=== PATIENT | male | born 1940 | race Caucasian/White ===

== ENCOUNTER → 2016-03-22 | Outpatient (CLI) | payer OTHER ==
[~2016-03-22] MED LIST: LOSA100T2 PO; NAPR1TAB9 PO
[2016-03-22 11:00] LABS: BASO % 0.2 %; BASO ABS # 0.02 K/uL (0-0.2); COMPLETE YES; EOS % 5.1 %; HEMATOCRIT 44.7 % (42-52); IG% 0.2 %; LYMPH % 25.8 %; LYMPH ABS # 2.27 K/uL (1.2-3.4); MEAN CELL VOLUME 94.1 fL (80-100); MEAN CORPUSCULAR HEMOGLOBIN 33.3 pg (25-34); MEAN CORPUSCULAR HGB CONC 35.3 g/dl (32-36); MEAN PLATELET VOLUME 11.3 fL (7.4-10.4); MONO % 7.8 %; NEUT % 60.9 %; PLATELET COUNT 179 K/uL (130-400); RED BLOOD COUNT 4.75 M/uL (4.7-6.1); WHITE BLOOD COUNT 8.79 K/uL (4.8-10.8)
[2016-03-22 11:09] LABS: BLOOD UREA NITROGEN 13 mg/dl (7-18); BUN/CREATININE RATIO 14.6 (10-20); CALCIUM 9.6 mg/dl (8.5-10.1); CARBON DIOXIDE 31 mmol/L (21-32); CHLORIDE 104 mmol/L (98-107); CREATININE 0.89 mg/dl (0.60-1.40); GLUCOSE 101 mg/dl (70-99); POTASSIUM 4.2 mmol/L (3.5-5.1); SODIUM 141 mmol/L (136-145)
== END | disposition home or self-care (01) ==
LOC: C.LAB 09:46
PROVIDERS: ATTEND Internal Medicine Geriatric Medicine
DX: I10 Essential (primary) hypertension (principal); M19.90 Unspecified osteoarthritis, unspecified site; R73.9 Hyperglycemia, unspecified; E78.5 Hyperlipidemia, unspecified; D69.6 Thrombocytopenia, unspecified; E83.52 Hypercalcemia

== ENCOUNTER → 2016-09-20 | Outpatient (CLI) | payer OTHER ==
[2016-09-20 12:21] LABS: HEMATOCRIT 43.1 % (42-52); MEAN CELL VOLUME 97.3 fL (80-100); MEAN CORPUSCULAR HGB CONC 33.9 g/dl (32-36); MEAN PLATELET VOLUME 11.2 fL (7.4-10.4); PLATELET COUNT 161 K/uL (130-400); RED BLOOD COUNT 4.43 M/uL (4.7-6.1); WHITE BLOOD COUNT 8.29 K/uL (4.8-10.8)
[2016-09-20 12:57] LABS: ALT/SGPT 37 U/L (12-78); AST/SGOT 23 U/L (15-37); BLOOD UREA NITROGEN 12 mg/dl (7-18); BUN/CREATININE RATIO 17.7 (10-20); CARBON DIOXIDE 30 mmol/L (21-32); CHLORIDE 107 mmol/L (98-107); CHOLESTEROL 129 mg/dl (0-200); CREATININE 0.69 mg/dl (0.60-1.40); GLUCOSE 92 mg/dl (70-99); POTASSIUM 4.2 mmol/L (3.5-5.1); SODIUM 141 mmol/L (136-145)
[2016-09-20 13:08] LABS: ALB/GLOB RATIO 1.1 (0.9-2); ALKALINE PHOSPHATASE 79 U/L (45-117); CHOLESTEROL/HDL RATIO 3.8; FERRITIN 452.4 ng/ml (8.0-388.0); HDL CHOLESTEROL 34 mg/dl; LDL CHOLESTEROL CALCULATED 63 mg/dl; TRIGLYCERIDES 162 mg/dl (0-150); VERY LOW DENSITY LIPOPROT CALC 32 mg/dl
== END | disposition home or self-care (01) ==
LOC: C.LAB 11:13
PROVIDERS: ATTEND Internal Medicine Geriatric Medicine
DX: R73.9 Hyperglycemia, unspecified (principal); D69.6 Thrombocytopenia, unspecified; E83.52 Hypercalcemia; I10 Essential (primary) hypertension; E78.5 Hyperlipidemia, unspecified; N20.0 Calculus of kidney; E55.9 Vitamin D deficiency, unspecified

== ENCOUNTER → 2017-03-08 | Outpatient (CLI) | payer OTHER ==
--- NOTE | 2017-03-08 09:58 | DIAGNOSTIC IMAGING REPORT ---
CHEST 2 VIEWS ROUTINE CLINICAL HISTORY: J20.9 Acute bronchitis COMPARISON STUDY: 11/01/2012 FINDINGS: The cardiac and mediastinal contours are normal. There is no evidence of focal pulmonary consolidation. There is no evidence of failure. No pleural effusions are visualized.[ IMPRESSION: No active disease in the chest. Electronically signed by: Jessee Mckeon M.D. 03/08/2017 9:56 AM Dictated Date/Time: 03/08/2017 9:56 AM
== END | disposition home or self-care (01) ==
LOC: C.RADBC 09:42
PROVIDERS: ATTEND Physician Assistant Medical
DX: J20.9 Acute bronchitis, unspecified (principal)

== ENCOUNTER → 2017-04-03 | Outpatient (CLI) | payer OTHER ==
[2017-04-03 18:14] LABS: BLOOD UREA NITROGEN 14 mg/dl (7-18); CALCIUM 9.2 mg/dl (8.5-10.1); CARBON DIOXIDE 29 mmol/L (21-32); CREATININE 0.84 mg/dl (0.60-1.40); GLUCOSE 93 mg/dl (70-99); POTASSIUM 4.2 mmol/L (3.5-5.1); SODIUM 139 mmol/L (136-145)
== END | disposition home or self-care (01) ==
LOC: C.LABBFT 11:39
PROVIDERS: ATTEND Internal Medicine Geriatric Medicine
DX: R39.15 Urgency of urination (principal); I10 Essential (primary) hypertension; R73.9 Hyperglycemia, unspecified; E83.52 Hypercalcemia

== ENCOUNTER 2020-12-02 07:50 | Inpatient (IN) ==
--- NOTE | 2020-12-02 08:05 | Emergency Department Note ---
Impression & Plan Small bowel obstruction, Esophageal dysphagia, Nausea & vomiting ED Provider Note Provider: Chu Rosado MD DATE OF SERVICE: 12/02/2020 CHIEF COMPLAINT: Vomiting, abdominal bloating HISTORY OF PRESENT ILLNESS: Patient is a 80-year-old gentleman past medical history including atrial fibrillation on Xarelto, thrombocytopenia, chronic back pain, GERD, diverticulosis, and an abdominal mass presenting here today reporting that he has been vomiting over the past 2 days. States he threw up o nce this morning has been on and off since Sunday. Reports 06/05 abdominal discomfort does not really describe it some which is the pain is some bloating. Denies any flatulence or bowel movements over the last 2 days. States he did note acute down a little bit of fluid. Was given a prescription for some Zofran yesterday but this has not helped with the vomiting although he thinks he threw up the pill. Patient denies any other sick contacts peer denies any chest pain or shortness of breath. Patient states he has been to take his home medicines last this past evening. Patient denies a history of similar. Does report a history of left inguinal hernia repair with mesh placement by Dr. Barrera. Patient is vaccinated for Covid. No lightheadedness or fainting reported. Has been try to keep down Pedialyte at home but no food for several days. No fevers reported. REVIEW OF SYSTEMS: A total of 10 review of systems was obtained and negative except as stated above in the HPI. PAST MEDICAL HISTORY: As noted above MEDICATIONS: Reviewed home medications SOCIAL HISTORY:former smoker PHYSICAL EXAM: GENERAL: alert and oriented in no acute distress on stretcher Head: normocephalic and atraumatic EYES: No injection, discharge or icterus. NECK: Trachea midline. LUNGS: Airway patent. No retractions. Breath sounds clear with good air entry bilaterally. HEART: Regular rate and rhythm. No chest wall tenderness ABDOMEN: Soft without guarding and no significant distention or masses appreciated. There is some mild deep tenderness in the left lower quadrant on palpation. Denies urinary or testicular tenderness. BACK: No bilateral flank tenderness. SKIN: Acyanotic, warm, dry, without rashes EXTREMITIES: Without swelling, tenderness or deformity NEUROLOGICAL: No focal deficits. No aphasia. No facial droop or slurred speech. Ambulatory. EK bpm sinus rhythm first-degree AV block. No PVC noted. No acute ST segment elevation noted with a right bundle branch block and left anterior fascicular block. QTc 441. In comparison to previous from December [id number], now appears with RBBB and LAFB with a slightly faster heart rate and first- degree AV block. CONTINUOUS CARDIAC MONITORING: was ordered and showed a heart rate of 60s to 70s bpm in first-degree AV block Patient's laboratory studies and imaging reviewed. Differential includes Appendicitis, testicular torsion, infections, diverticulitis, UTI, obstruction, mesenteric ischemia, aortic pathology, inflammatory bowel disease, renal colic, PUD, pancreatitis, biliary pathology, hernia, volvulus, constipation, as well as other pathologies. IMPRESSION/MEDICAL DECISION MAKING: Seen in conjunction with the resident physician. Covid vaccinated but will send Covid test to exclude. Question given his lack of bowel movement or flatulence if he may be suffering from an SBO. Patient from records reportedly has history of diverticulosis which is an alternative diagnosis as well as possible abdominal mass. Basic labs to be completed though the patient does not appear in extremitas were given some IV fluid hydration of Zofran here to help with symptoms. Denies severe pain more of a pressure and bloating sensation. Basic labs were completed. Given his history of A. fib and EKG was completed. Doubt this is pulmonary related he denies significant pulmonary symptoms and the patient is not appear to have symptoms concerning for Boerhaave syndrome. No vomiting of blood is reported & I doubt a GI bleed. Patient blood work shows no anemia but significant leukocytosis of 23 today. Labs otherwise without severe abnormality. Creatinine minimally elevated from previous and some hydration here. CT scan per radiology with evidence of SBO. Consistent with his symptoms. Again prior history of hernia surgery with Dr. Barrera. Given some additional Reglan to help with nausea. Discussed with the patient may need to proceed with NG tube his refractory nausea. Discussed with him bowel rest and discussed with the hospitalist further care here at the hospital. DIAGNOSIS: Small bowel obstruction, nausea DISPOSITION: Hospitalist will evaluate Patient was agreeable with this plan. Past Med/Surg History Medical History Abdominal mass Achalasia Atrial fibrillation on xarelto; follows with Dr. Piedra Chronic back pain Chronic venous insufficiency GERD (gastroesophageal reflux disease) Hyperlipidemia Hypertension Left bundle branch block On anticoagulant therapy XARELTO DAILY Osteoarthritis Sensorineural hearing loss (SNHL) of left ear with restricted hearing of right ear Sleep apnea CPAP SOB (shortness of breath) on exertion Surgical History History of arthroscopy RIGHT ELBOW History of arthroscopy LEFT KNEE History of cataract surgery History of colonoscopy X 2 History of esophagogastroduodenoscopy (EGD) History of herniorrhaphy (2009) Left inguinal hernia with mesh. Dr. Barrera History of total hip arthroplasty LEFT Family History Father Pancreatic cancer Grandfather (Maternal) Myocardial infarction Grandfather (Paternal) Myocardial infarction Mother Alzheimer disease Other Cancer Hypertension No family history of adverse response to anesthesia Denies family history of Ovarian cancer Prostate cancer Breast cancer Lung cancer Colorectal cancer Stroke Social History Smoking Status: Former smoker Tobacco Type: Cigarettes Age Started Using Tobacco: 18; Age Quit Using Tobacco: 68; packs per day: 1.5; Years Smoked: 50; Cigarettes Per Day: QUIT SEVERAL YEARS AGO; Number of Years Since Quit: 10; Second Hand Exposure: No; Hx Alcohol Use: Yes Alcohol type: beer Hx Substance Use: No Preferred Language: Bulgarian Communication Ability: Effective Visual Impairment: No Limitations Hearing Ability: Normal Gang Saw Operator Required: No Beliefs That Will Affect Care: None marital status: Current Living Situation: Spouse current occupational status: retired Feels Safe at Home: Yes Dental Care, Regularly: No Physical Activity Frequency: Does not Exercise Seatbelt Use: always Assistive Devices: Denture - Upper and Denture - Lower Allergies Allergies Allergy/AdvReac Type Severity Reaction Status Date / Time No Known Drug Allergies Allergy Verified 12/02/20 10:11 Home Meds Home Medications Medication Instructions Recorded Confirmed cholecalciferol (vitamin D3) 25 1,000 unit PO QAM 03/06/18 12/02/20 mcg (1,000 unit) capsule (Vitamin D3) ascorbic acid (vitamin C) 500 mg 500 mg PO QAM 06/06/19 12/02/20 tablet multivitamin (Multiple Vitamins) 1 tab PO QAM 06/06/19 12/02/20 flecainide 100 mg tablet 0 mg PO Q12H 12/02/20 12/02/20 ondansetron HCl 4 mg tablet 4 mg PO Q6H PRN 12/02/20 12/02/20 Previous Rx's Medication Instructions Recorded CPAP Machine #1 ea 03/10/19 CPAP Machine #1 ea 06/09/19 doxazosin 2 mg tablet 2 mg PO QPM #90 tab 07/27/20 losartan 100 mg tablet 100 mg PO QAM #90 tab 09/02/20 atorvastatin 10 mg tablet 10 mg PO HS #90 tab 09/21/20 pantoprazole 20 mg tablet,delayed 20 mg PO QAM #90 tab 09/21/20 release metoprolol tartrate 25 mg tablet 12.5 mg PO BID #30 tab 09/22/20 rivaroxaban 20 mg tablet (Xarelto) 20 mg PO HS #30 tab 09/22/20 hydrochlorothiazide 12.5 mg tablet 12.5 mg PO DAILY #90 tab 10/05/20 Results & Data (ED) Vital Signs Vital Signs - 24 hr 12/02/20 07:53 12/02/20 08:31 12/02/20 09:00 Temperature 35.9 C L Temperature Source Temporal Artery Scan Pulse Rate 93 H 63 Pulse Rate [Apical] 64 Pulse Rate from SpO2 Sensor 65 Respiratory Rate 20 18 15 Respiratory Effort / Characteristics Non-Labored Spontaneous Respiratory Depth Normal Blood Pressure 134/86 150/61 H Blood Pressure [Left Arm] 123/71 Blood Pressure Mean 102 90 Blood Pressure Mean [Left Arm] 88 Blood Pressure Position Sitting Pulse Oximetry 95 94 94 Oxygen Delivery Method Room Air Room Air Room Air Sepsis Recent Fever Within 48 Hours No Sepsis New/Unexplained Change in Mental Status N/A Sepsis Action Taken by Nursing No Action Required 12/02/20 09:30 12/02/20 10:00 12/02/20 10:30 Temperature Temperature Source Pulse Rate 58 L 62 63 Pulse Rate [Apical] Pulse Rate from SpO2 Sensor 62 62 62 Respiratory Rate 6 L 13 13 Respiratory Effort / Characteristics Respiratory Depth Blood Pressure 126/70 152/70 H 146/74 H Blood Pressure [Left Arm] Blood Pressure Mean 88 97 98 Blood Pressure Mean [Left Arm] Blood Pressure Position Pulse Oximetry 94 96 96 Oxygen Delivery Method Room Air Room Air Room Air Sepsis Recent Fever Within 48 Hours Sepsis New/Unexplained Change in Mental Status Sepsis Action Taken by Nursing 12/02/20 11:00 12/02/20 11:30 12/02/20 12:00 Temperature Temperature Source Pulse Rate 63 76 87 Pulse Rate [Apical] Pulse Rate from SpO2 Sensor 62 72 85 Respiratory Rate 19 19 19 Respiratory Effort / Characteristics Respiratory Depth Blood Pressure 149/75 H Blood Pressure [Left Arm] Blood Pressure Mean 99 Blood Pressure Mean [Left Arm] Blood Pressure Position Pulse Oximetry 94 95 94 Oxygen Delivery Method Room Air Room Air Room Air Sepsis Recent Fever Within 48 Hours Sepsis New/Unexplained Change in Mental Status Sepsis Action Taken by Nursing 12/02/20 12:30 Temperature Temperature Source Pulse Rate 71 Pulse Rate [Apical] Pulse Rate from SpO2 Sensor 73 Respiratory Rate 22 Respiratory Effort / Characteristics Respiratory Depth Blood Pressure Blood Pressure [Left Arm] Blood Pressure Mean Blood Pressure Mean [Left Arm] Blood Pressure Position Pulse Oximetry 98 Oxygen Delivery Method Room Air Sepsis Recent Fever Within 48 Hours Sepsis New/Unexplained Change in Mental Status Sepsis Action Taken by Nursing Laboratory Data Result diagrams: 12/02/20 08:24 12/02/20 08:24 Lab Results 12/02/20 12/02/20 12/02/20 Range/Units 08:24 08:24 08:31 WBC 23.21 H (4.8-10.8) K/uL RBC 4.63 L (4.7-6.1) M/uL Hgb 15.4 (14.0-18.0) g/dL Hct 44.8 (42-52) % MCV 96.8 (80-100) fL MCH 33.3 (25-34) pg MCHC 34.4 (32-36) g/dL RDW Std Deviation 47.1 H (36.4-46.3) fL RDW Coeff of Dustin 13.4 (11.5-14.5) % Plt Count 207 (130-400) K/uL MPV 10.7 H (7.4-10.4) fL Immature Gran % (Auto) 0.3 % Neut % (Auto) 89.1 % Lymph % (Auto) 4.7 % [place] % (Auto) 5.9 % Eos % (Auto) 0.0 % Baso % (Auto) 0.0 % Neut # (Auto) 20.68 H (1.4-6.5) K/uL Lymph # (Auto) 1.10 L (1.2-3.4) K/uL [place] # (Auto) 1.36 H (0.11-0.59) K/uL Eos # (Auto) 0.00 (0-0.5) K/uL Baso # (Auto) 0.01 (0-0.2) K/uL Immature Gran # (Auto) 0.06 H (0.00-0.02) K/uL Sodium 139 (136-145) mmol/L Potassium 3.5 (3.5-5.1) mmol/L Chloride 101 (98-107) mmol/L Carbon Dioxide 31 (21-32) mmol/L Anion Gap 8.0 (3-11) BUN 23 H (7-18) mg/dl Creatinine 1.36 (0.6-1.4) mg/dl Est Cr Clr Drug Dosing 54.7 ml/min Est GFR ( Amer) 57.4 ml/min Est GFR (Non-Af Amer) 49.5 ml/min BUN/Creatinine Ratio 16.7 (10-20) Glucose 157 H (70-99) mg/dl Calcium 10.6 H (8.5-10.1) mg/dl Total Bilirubin 0.7 (0.2-1) mg/dl AST 26 (15-37) U/L ALT 32 (12-78) U/L Alkaline Phosphatase 76 (45-117) U/L Troponin I < 0.015 (0-0.045) ng/ml Total Protein 9.0 H (6.4-8.2) gm/dl Albumin 4.2 (3.4-5.0) gm/dl Globulin 4.8 H (2.5-4.0) gm/dl Albumin/Globulin Ratio 0.9 (0.9-2) Lipase 126 (73-393) U/L COVID-19 Eval Order Covid19 [facility] SARS-CoV-2 (PCR) (Negative) SARS-CoV-2, RNA, NAAT (NEGATIVE) 12/02/20 12/02/20 12/02/20 Range/Units 08:31 09:01 09:01 WBC (4.8-10.8) K/uL RBC (4.7-6.1) M/uL Hgb (14.0-18.0) g/dL Hct (42-52) % MCV (80-100) fL MCH (25-34) pg MCHC (32-36) g/dL RDW Std Deviation (36.4-46.3) fL RDW Coeff of Dustin (11.5-14.5) % Plt Count (130-400) K/uL MPV (7.4-10.4) fL Immature Gran % (Auto) % Neut % (Auto) % Lymph % (Auto) % [place] % (Auto) % Eos % (Auto) % Baso % (Auto) % Neut # (Auto) (1.4-6.5) K/uL Lymph # (Auto) (1.2-3.4) K/uL [place] # (Auto) (0.11-0.59) K/uL Eos # (Auto) (0-0.5) K/uL Baso # (Auto) (0-0.2) K/uL Immature Gran # (Auto) (0.00-0.02) K/uL Sodium (136-145) mmol/L Potassium (3.5-5.1) mmol/L Chloride (98-107) mmol/L Carbon Dioxide (21-32) mmol/L Anion Gap (3-11) BUN (7-18) mg/dl Creatinine (0.6-1.4) mg/dl Est Cr Clr Drug Dosing ml/min Est GFR ( Amer) ml/min Est GFR (Non-Af Amer) ml/min BUN/Creatinine Ratio (10-20) Glucose (70-99) mg/dl Calcium (8.5-10.1) mg/dl Total Bilirubin (0.2-1) mg/dl AST (15-37) U/L ALT (12-78) U/L Alkaline Phosphatase (45-117) U/L Troponin I (0-0.045) ng/ml Total Protein (6.4-8.2) gm/dl Albumin (3.4-5.0) gm/dl Globulin (2.5-4.0) gm/dl Albumin/Globulin Ratio (0.9-2) Lipase (73-393) U/L COVID-19 Eval Order Covid19 at [facility] SARS-CoV-2 (PCR) NEGATIVE (Negative) SARS-CoV-2, RNA, NAAT NEGATIVE (NEGATIVE) Administered Medications Discontinued Medications Sodium Chloride (Nss 1000ml) 1,000 mls @ 999 mls/hr IV .Q1H1M STA Stop: 12/02/20 09:13 Last Infusion: 12/02/20 09:33 Dose: 0 mls/hr Documented by: [id number] Admin: 12/02/20 08:32 Dose: 999 mls/hr Documented by: [id number] Ioversol (Optiray 320 100ml) 93 ml IV ONCE ONE Stop: 12/02/20 09:13 Last Admin: 12/02/20 09:12 Dose: 93 ml Documented by: [id number] Ketorolac Tromethamine (Ketorolac Tromethamine 15 Mg/Ml Vial) 10 mg IV NOW STA Stop: 12/02/20 08:14 Last Admin: 12/02/20 08:33 Dose: 10 mg Documented by: [id number] Metoclopramide HCl (Metoclopramide Hcl Inj 5 Mg/Ml 2 Ml Vial) 5 mg IV ONE ONE Stop: 12/02/20 09:18 Last Admin: 12/02/20 09:21 Dose: 5 mg Documented by: [id number] Metoclopramide HCl (Metoclopramide Hcl Inj 5 Mg/Ml 2 Ml Vial) 5 mg IV ONE ONE Stop: 12/02/20 10:09 Last Admin: 12/02/20 10:20 Dose: 5 mg Documented by: [id number] Ondansetron HCl (Ondansetron Inj 2 Mg/Ml 2 Ml Vial) 4 mg IV NOW STA Stop: 12/02/20 08:14 Last Admin: 12/02/20 08:33 Dose: 4 mg Documented by: [id number] Imaging Data Radiologist's Impression: Abdomen/Pelvis CT 12/02/20 08:[address] WITH IV CONTRAST CT DOSE: 1408.43 mGy.cm HISTORY: Generalized abdominal pain. Assess for small bowel obstruction. TECHNIQUE: Multiaxial CT images of the abdomen and pelvis were performed follo wing the use of intravenous contrast. A dose lowering technique was utilized adhering to the principles of ALARA. COMPARISON STUDY: Abdomen and pelvis CT 06/15/2020. FINDINGS: The lung bases are clear. No pneumoperitoneum. No pneumatosis. There is a left total hip arthroplasty. No suspicious lytic or blastic osseous lesions. Mild circumferential thickening of the distal esophagus, unchanged. The liver, gallbladder, spleen, adrenal glands, and pancreas are unremarkable. There are few subcentimeter bilateral renal hypodense lesions. These are technically too small to characterize but likely represent cysts. There is a punctate stone within the left kidney. No ureteral stones. No hydronephrosis. The bladder is unremarkable. The prostate gland is mildly enlarged. The main portal vein is patent. No retroperitoneal lymphadenopathy. Dilated and fluid-filled loops of proximal small bowel to the level of the midabdomen where there is a focal t ransition point best seen on image 290. This is consistent with a small bowel obstruction. The stomach is also distended and fluid-filled. The loops of bowel distal to the transition point are decompressed. No pelvic free fluid. The conus also decompressed. No bowel wall thickening. Colonic diverticulosis. No evidence for acute diverticulitis. Normal appendix. IMPRESSION: 1. Distended and fluid-filled stomach and proximal small bowel with a focal transition point within the mid jejunum as described above. This consistent with a small bowel obstruction. 2. Left-sided nephrolithiasis. No hydronephrosis. 3. No change in the mild distal esophageal wall thickening. This may represent a mild esophagitis. 4. Normal appendix. 5. Colonic diverticulosis. ACT 112: Negative or not required by law. Electronically signed by: Abhijit Valerio M.D. 12/02/2020 9:32 AM Chest X-Ray 12/02/20 08:41 XR chest 1V portable HISTORY: Generalized abdominal pain. Possible small bowel obstruction. COMPARISON: Chest 06/22/2020. FINDINGS: No pneumothorax. No pleural effusions. The cardiac silhouette is borderline enlarged. No focal lung consolidations to suggest pneumonia. No evidence for pulmonary edema. IMPRESSION: No acute process. ACT 112: Negative or not required by law. Electronically signed by: Abhijit Valerio M.D. 12/02/2020 8:55 AM Discharge Plan Visit Data Chief Complaint: Vomiting Stated Complaint: VOMITING x2DAYS ED Provider: Chu Rosado ED Midlevel Provider: Carley Hardin Discharge Problem: Small bowel obstruction, Esophageal dysphagia, Nausea & vomiting Patient Disposition: Admitted As Inpatient Forms [facility] Pres[facility] Prescriptions: No Action doxazosin 2 mg tablet 2 mg PO QPM Qty: 90 RF: 3 losartan 100 mg tablet 100 mg PO QAM Qty: 90 RF: 3 pantoprazole 20 mg tablet,delayed release (DR/EC) 20 mg PO QAM Qty: 90 RF: 3 atorvastatin 10 mg tablet 10 mg PO HS Qty: 90 RF: 3 metoprolol tartrate 25 mg tablet 12.5 mg PO BID Qty: 30 RF: 11 Xarelto 20 mg tablet 20 mg PO HS Qty: 30 RF: 11 hydrochlorothiazide 12.5 mg tablet 12.5 mg PO DAILY Qty: 90 RF: 3 (DME) CPAP Machine Misc See Rx Instructions .ROUTE .MEDSUPPLY Qty: 1 RF: 0 (DME) CPAP Machine Misc See Rx Instructions .ROUTE .MEDSUPPLY Qty: 1 RF: 0 multivitamin [Multiple Vitamins] Tablet 1 tab PO QAM RF: 0 ascorbic acid (vitamin C) 500 mg tablet 500 mg PO QAM RF: 0 cholecalciferol (vitamin D3) [Vitamin D3] 1,000 unit Capsule 1,000 unit PO QAM RF: 0 ondansetron HCl 4 mg tablet 4 mg PO Q6H PRN (Reason: Nausea) RF: 0 flecainide 100 mg tablet 0 mg PO Q12H RF: 0 Referrals Referrals: Sejal Murray MD [Primary Care Provider] -
[2020-12-02] MEDS ORDERED: SODIUM CHLORIDE 0.9% 1000ML 1,000 ML IV STA (08:13)
[2020-12-02] MEDS ORDERED: ONDANSETRON INJ 2 MG/ML 2 ML VIAL IV STA (08:13)
[2020-12-02] MEDS ORDERED: KETOROLAC TROMETHAMINE 15 MG/ML VIAL IV STA (08:13)
[2020-12-02 08:36] LABS: Hematocrit (blood only) 44.8 % (42-52); Hemoglobin 15.4 g/dL (14.0-18.0); Mean Corpuscular Hemoglobin 33.3 pg (25-34); Mean Corpuscular Hgb Conc 34.4 g/dL (32-36); Mean Corpuscular Volume 96.8 fL (80-100); Mean Platelet Volume 10.7 fL (7.4-10.4); Platelet Count 207 K/uL (130-400); RDW Coefficient of Variation 13.4 % (11.5-14.5); RDW Standard Deviation 47.1 fL (36.4-46.3); Red Blood Count 4.63 M/uL (4.7-6.1); White Blood Count 23.21 K/uL (4.8-10.8)
[2020-12-02 08:53] LABS: Alanine Aminotransferase 32 U/L (12-78); Albumin Level 4.2 gm/dl (3.4-5.0); BUN Creatinine Ratio 16.7 (10-20); Blood Urea Nitrogen 23 mg/dl (7-18); Calcium 10.6 mg/dl (8.5-10.1); Carbon Dioxide 31 mmol/L (21-32); Chloride 101 mmol/L (98-107); Creatinine Clr Calc Pharmacy 54.7 ml/min; Est GFR (African American) 57.4 ml/min; Est GFR (Non-African American) 49.5 ml/min; Glucose 157 mg/dl (70-99); Lipase 126 U/L (73-393); Potassium 3.5 mmol/L (3.5-5.1); Sodium 139 mmol/L (136-145)
--- NOTE | 2020-12-02 08:56 | XRay Report ---
XR chest 1V portable HISTORY: Generalized abdominal pain. Possible small bowel obstruction. COMPARISON: Chest 06/22/2020. FINDINGS: No pneumothorax. No pleural effusions. The cardiac silhouette is borderline enlarged. No fo angela lung consolidations to suggest pneumonia. No evidence for pulmonary edema. IMPRESSION: No acute process. ACT 112: Negative or not required by law. Electronically signed by: Abhijit Valerio M.D. 12/02/2020 8:55 AM
[2020-12-02 08:58] LABS: Albumin Globulin Ratio 0.9 (0.9-2); Alkaline Phosphatase 76 U/L (45-117); Aspartate Aminotransferase 26 U/L (15-37); Bilirubin,Total 0.7 mg/dl (0.2-1); Globulin 4.8 gm/dl (2.5-4.0); Troponin I < 0.015 ng/ml (0-0.045)
[2020-12-02 08:59] LABS: Basophils # (auto) 0.01 K/uL (0-0.2); Immature Granulocytes # (auto) 0.06 K/uL (0.00-0.02); Immature Granulocytes % (auto) 0.3 %; Lymphocytes % (auto) 4.7 %; Monocytes # (auto) 1.36 K/uL (0.11-0.59); Monocytes % (auto) 5.9 %; Neutrophils # (auto) 20.68 K/uL (1.4-6.5); Neutrophils % (auto) 89.1 %
[2020-12-02] MEDS ORDERED: OPTIRAY 320 100ml IV ONE (09:12)
[2020-12-02] MEDS ORDERED: METOCLOPRAMIDE HCL INJ 5 MG/ML 2 ML VIAL IV ONE ×2 (09:17→10:08)
--- NOTE | 2020-12-02 09:33 | CT Scan Report ---
ABDOMEN AND PELVIS CT WITH IV CONTRAST CT DOSE: 1408.43 mGy.cm HISTORY: Generalized abdominal pain. Assess for small bowel obstruction. TECHNIQUE: Multiaxial CT images of the abdomen and pelvis were performed following the use of intrave nous contrast. A dose lowering technique was utilized adhering to the principles of ALARA. COMPARISON STUDY: Abdomen and pelvis CT 06/15/2020. FINDINGS: The lung bases are clear. No pneumoperitoneum. No pneumatosis. There is a left total hip ar throplasty. No suspicious lytic or blastic osseous lesions. Mild circumferential thickening of the di stal esophagus, unchanged. The liver, gallbladder, spleen, adrenal glands, and pancreas are unremarka ble. There are few subcentimeter bilateral renal hypodense lesions. These are technically too small t o characterize but likely represent cysts. There is a punctate stone within the left kidney. No urete ral stones. No hydronephrosis. The bladder is unremarkable. The prostate gland is mildly enlarged. Th e main portal vein is patent. No retroperitoneal lymphadenopathy. Dilated and fluid-filled loops of p roximal small bowel to the level of the midabdomen where there is a focal transition point best seen on image 290. This is consistent with a small bowel obstruction. The stomach is also distended and fl uid-filled. The loops of bowel distal to the transition point are decompressed. No pelvic free fluid. The conus also decompressed. No bowel wall thickening. Colonic diverticulosis. No evidence for acute diverticulitis. Normal appendix. IMPRESSION: 1. Distended and fluid-filled stomach and proximal small bowel with a focal transition point within t he mid jejunum as described above. This consistent with a small bowel obstruction. 2. Left-sided nephrolithiasis. No hydronephrosis. 3. No change in the mild distal esophageal wall thickening. This may represent a mild esophagitis. 4. Normal appendix. 5. Colonic diverticulosis. ACT 112: Negative or not required by law. Electronically signed by: Abhijit Valerio M.D. 12/02/2020 9:32 AM
--- NOTE | 2020-12-02 11:13 | History & Physical Report ---
Date of Service December 02, 2020 Assessment & Plan (1) Small bowel obstruction: Plan: Small bowel obstruction- Transition point admit jejunum Fluid-filled and distended stomach\ NPO NG tube to low intermittent suction Zofran 4 mg IV every 6 hours as needed Zosyn 4.5 g IV every 8 hours Famotidine 20 mg IV every 12 hours Acetaminophen 1000 mg IV every 8 hours as needed mild pain or fever Toradol 15 mg IV every 6 hours as needed for moderate pain Consult general surgery (2) Esophageal dysphagia: Plan: Esophageal dysphagia/GERD/esophagitis- Place on famotidine 20 mg IV every [address] on pantoprazole 40 mg IV daily (3) Obstructive sleep apnea: Plan: CPAP at bedtime (4) Atrial fibrillation: Plan: Atrial fibrillation/hypertension- Hold doxazosin, flecainide, HCTZ, losartan, metoprolol tartrate and Xarelto while n.p.o. Lopressor 5 mg IV every 4 hours as needed heart rate greater than 110 or systolic blood pressure greater than 60 (5) Hypertension: Plan: See above (6) GERD (gastroesophageal reflux disease): Plan: See above (7) Esophagitis: Plan: See above History of Present Illness Chief Complaint: The patient presents to the emergency department with complaint of 2 days of worsening abdominal pain, nausea, vomiting, distention and bloating Primary Care Provider: Sejal Murray MD The patient is a 80-year-old male with a past medical history including esophageal dysphagia, AILYN, atrial fibrillation, hypertension, CVI, GERD, dyslipidemia, generalized osteoarthritis,, SNHL left, obesity, bilateral lower extremity edema and achalasia. The patient presents to emergency department with 2 days of worsening abdominal pain, nausea, vomiting, abdominal distention and bloating. He was unable to take his morning medications due to the symptoms. CT scan of abdomen and pelvis in the ED: Distended and fluid-filled stomach and proximal small bowel with a focal transition point within the mid jejunum consistent with a small bowel obstruction. Left-sided nephrolithiasis. Mild esophageal distal wall thickening which may represent a mild esophagitis. Colonic diverticulosis. Abnormal laboratories: WBC 23.21, glucose 157, creatinine 1.36, calcium 10.6. From the ED patient received normal saline 1 L, Toradol 10 mg IV, Zofran 4 mg IV and metoclopramide 5 mg IV x2 Allergies Allergy/AdvReac Type Severity Reaction Status Date / Time No Known Drug Allergies Allergy Verified 12/02/20 10:11 Home Medications Medication Instructions Recorded Confirmed Type cholecalciferol (vitamin D3) 25 1,000 unit PO QAM 03/06/18 12/02/20 History mcg (1,000 unit) capsule (Vitamin D3) CPAP Machine #1 ea 03/10/19 09/06/20 Rx ascorbic acid (vitamin C) 500 mg 500 mg PO QAM 06/06/19 12/02/20 History tablet multivitamin (Multiple Vitamins) 1 tab PO QAM 06/06/19 12/02/20 History CPAP Machine #1 ea 06/09/19 09/06/20 Rx doxazosin 2 mg tablet 2 mg PO QPM #90 tab 07/27/20 12/02/20 Rx losartan 100 mg tablet 100 mg PO QAM #90 tab 09/02/20 12/02/20 Rx atorvastatin 10 mg tablet 10 mg PO HS #90 tab 09/21/20 12/02/20 Rx pantoprazole 20 mg tablet,delayed 20 mg PO QAM #90 tab 09/21/20 12/02/20 Rx release metoprolol tartrate 25 mg tablet 12.5 mg PO BID #30 tab 09/22/20 12/02/20 Rx rivaroxaban 20 mg tablet (Xarelto) 20 mg PO HS #30 tab 09/22/20 12/02/20 Rx hydrochlorothiazide 12.5 mg tablet 12.5 mg PO DAILY #90 tab 10/05/20 12/02/20 Rx flecainide 100 mg tablet 0 mg PO Q12H 12/02/20 12/02/20 History ondansetron HCl 4 mg tablet 4 mg PO Q6H PRN 12/02/20 12/02/20 History Past Med/Surg History Medical History Abdominal mass Achalasia Atrial fibrillation on xarelto; follows with Dr. Piedra Chronic back pain Chronic venous insufficiency GERD (gastroesophageal reflux disease) Hyperlipidemia Hypertension Left bundle branch block On anticoagulant therapy XARELTO DAILY Osteoarthritis Sensorineural hearing loss (SNHL) of left ear with restricted hearing of right ear Sleep apnea CPAP SOB (shortness of breath) on exertion Surgical History History of arthroscopy RIGHT ELBOW History of arthroscopy LEFT KNEE History of cataract surgery History of colonoscopy X 2 History of esophagogastroduodenoscopy (EGD) History of herniorrhaphy (2009) Left inguinal hernia with mesh. Dr. Barrera History of total hip arthroplasty LEFT Family History Father Pancreatic cancer Grandfather (Maternal) Myocardial infarction Grandfather (Paternal) Myocardial infarction Mother Alzheimer disease Other Cancer Hypertension No family history of adverse response to anesthesia Denies family history of Ovarian cancer Prostate cancer Breast cancer Lung cancer Colorectal cancer Stroke Social History Smoking Status: Former smoker Tobacco Type: Cigarettes Age Started Using Tobacco: 18; Age Quit Using Tobacco: 68; packs per day: 1.5; Years Smoked: 50; Cigarettes Per Day: QUIT SEVERAL YEARS AGO; Number of Years Since Quit: 10; Second Hand Exposure: No; Hx Alcohol Use: Yes Alcohol type: beer Hx Substance Use: No Preferred Language: Telugu Communication Ability: Effective Visual Impairment: No Limitations Hearing Ability: Normal Shredding Machine Tender Required: No Beliefs That Will Affect Care: None marital status: Current Living Situation: Spouse current occupational status: retired Feels Safe at Home: Yes Dental Care, Regularly: No Physical Activity Frequency: Does not Exercise Seatbelt Use: always Assistive Devices: Denture - Upper and Denture - Lower Review of Systems Review of Systems: The patient denies chest pain, palpitations, shortness of breath, dyspnea on exertion, cough, lower extremity swelling, sore throat, fevers, chills, sweats, blood in urine or stool, dysuria, urinary frequency or urgency, lightheadedness, dizziness, headache, memory loss, loss of consciousness, rash, abnormal bruising or bleeding, imbalance, focal or generalized weakness, numbness or tingling in arms or legs, generalized arthralgias or myalgias, back or neck pain, or night sweats. The review of systems is otherwise negative other than for that already noted above, and at least 10 systems have been reviewed. Physical Exam Physical Exam: The patient is awake, alert and oriented 3, well developed and well nourished, normocephalic and atraumatic, lying in bed and in no acute distress. HEENT--PERRL, EOMI, mucous membranes and oropharynx dry. Neck--supple. No JVD. No bruits. Thyroid normal, trachea midline, no adenopathy. Heart--normal S1 and S2. No murmurs, rubs or gallops. Lungs--clear bilaterally, no respiratory distress, no accessory muscle use. Abdomen--decreased bowel sounds and soft. Nontender. Nondistended. Obese Extremities--no cyanosis or clubbing. No edema. Dermatologic--normal skin turgor, normal color, no abnormal lymph nodes, no rash. Neurologic--cranial nerves II through XII grossly intact. Rheumatologic--normal range of motion. Psychiatric--normal affect. Results & Data Results & Data ([facility] [place]) Vital Signs (Past 12 Hours) Vital Signs Temp Pulse Pulse Resp BP BP Pulse Ox 12/02/20 10:30 63 13 146/74 H 96 12/02/20 10:00 62 13 152/70 H 96 12/02/20 09:30 58 L 6 L 126/70 94 12/02/20 09:00 63 15 150/61 H 94 12/02/20 08:31 64 18 123/71 94 12/02/20 07:53 96.6 F L 93 H 20 134/86 95 Laboratory Results Laboratory Results WBC 23.21 K/uL (4.8-10.8) H 12/02/20 08:24 RBC 4.63 M/uL (4.7-6.1) L 12/02/20 08:24 Hgb 15.4 g/dL (14.0-18.0) 12/02/20 08:24 Hct 44.8 % (42-52) 12/02/20 08:24 MCV 96.8 fL (80-100) 12/02/20 08:24 MCH 33.3 pg (25-34) 12/02/20 08:24 MCHC 34.4 g/dL (32-36) 12/02/20 08:24 RDW Std Deviation 47.1 fL (36.4-46.3) H 12/02/20 08:24 RDW Coeff of Dustin 13.4 % (11.5-14.5) 12/02/20 08:24 Plt Count 207 K/uL (130-400) 12/02/20 08:24 MPV 10.7 fL (7.4-10.4) H 12/02/20 08:24 Immature Gran % (Auto) 0.3 % 12/02/20 08:24 Neut % (Auto) 89.1 % 12/02/20 08:24 Lymph % (Auto) 4.7 % 12/02/20 08:24 [place] % (Auto) 5.9 % 12/02/20 08:24 Eos % (Auto) 0.0 % 12/02/20 08:24 Baso % (Auto) 0.0 % 12/02/20 08:24 Neut # (Auto) 20.68 K/uL (1.4-6.5) H 12/02/20 08:24 Lymph # (Auto) 1.10 K/uL (1.2-3.4) L 12/02/20 08:24 [place] # (Auto) 1.36 K/uL (0.11-0.59) H 12/02/20 08:24 Eos # (Auto) 0.00 K/uL (0-0.5) 12/02/20 08:24 Baso # (Auto) 0.01 K/uL (0-0.2) 12/02/20 08:24 Immature Gran # (Auto) 0.06 K/uL (0.00-0.02) H 12/02/20 08:24 Sodium 139 mmol/L (136-145) 12/02/20 08:24 Potassium 3.5 mmol/L (3.5-5.1) 12/02/20 08:24 Chloride 101 mmol/L (98-107) 12/02/20 08:24 Carbon Dioxide 31 mmol/L (21-32) 12/02/20 08:24 Anion Gap 8.0 (3-11) 12/02/20 08:24 BUN 23 mg/dl (7-18) H 12/02/20 08:24 Creatinine 1.36 mg/dl (0.6-1.4) 12/02/20 08:24 Est Cr Clr Drug Dosing 54.7 ml/min 12/02/20 08:24 Est GFR ( Amer) 57.4 ml/min 12/02/20 08:24 Est GFR (Non-Af Amer) 49.5 ml/min 12/02/20 08:24 BUN/Creatinine Ratio 16.7 (10-20) 12/02/20 08:24 Glucose 157 mg/dl (70-99) H 12/02/20 08:24 Calcium 10.6 mg/dl (8.5-10.1) H 12/02/20 08:24 Total Bilirubin 0.7 mg/dl (0.2-1) 12/02/20 08:24 AST 26 U/L (15-37) 12/02/20 08:24 ALT 32 U/L (12-78) 12/02/20 08:24 Alkaline Phosphatase 76 U/L (45-117) 12/02/20 08:24 Troponin I < 0.015 ng/ml (0-0.045) 12/02/20 08:24 Total Protein 9.0 gm/dl (6.4-8.2) H 12/02/20 08:24 Albumin 4.2 gm/dl (3.4-5.0) 12/02/20 08:24 Globulin 4.8 gm/dl (2.5-4.0) H 12/02/20 08:24 Albumin/Globulin Ratio 0.9 (0.9-2) 12/02/20 08:24 Lipase 126 U/L (73-393) 12/02/20 08:24 COVID-19 Eval Order Covid19 at [facility] 12/02/20 09:01 SARS-CoV-2 (PCR) NEGATIVE (Negative) 12/02/20 09:01 SARS-CoV-2, RNA, NAAT NEGATIVE (NEGATIVE) 12/02/20 08:31 Impressions Abdomen/Pelvis CT 12/02/20 08:[address] WITH IV CONTRAST CT DOSE: 1408.43 mGy.cm HISTORY: Generalized abdominal pain. Assess for small bowel obstruction. TECHNIQUE: Multiaxial CT images of the abdomen and pelvis were performed following the use of intravenous contrast. A dose lowering technique was utilized adhering to the principles of ALARA. COMPARISON STUDY: Abdomen and pelvis CT 06/15/2020. FINDINGS: The lung bases are clear. No pneumoperitoneum. No pneumatosis. There is a left total hip arthroplasty. No suspicious lytic or blastic osseous lesions. Mild circumferential thickening of the distal esophagus, unchanged. The liver, gallbladder, spleen, adrenal glands, and pancreas are unremarkable. There are few subcentimeter bilateral renal hypodense lesions. These are technically too small to characterize but likely represent cysts. There is a punctate stone within the left kidney. No ureteral stones. No hydronephrosis. The bladder is unremarkable. The prostate gland is mildly enlarged. The main portal vein is patent. No retroperitoneal lymphadenopathy. Dilated and fluid-filled loops of proximal small bowel to the level of the midabdomen where there is a focal transition point best seen on image 290. This is consistent with a small bowel obstruction. The stomach is also distended and fluid-filled. The loops of bowel distal to the transition point are decompressed. No pelvic free fluid. The conus also decompressed. No bowel wall thickening. Colonic diverticulosis. No evidence for acute diverticulitis. Normal appendix. IMPRESSION: 1. Distended and fluid-filled stomach and proximal small bowel with a focal transition point within the mid jejunum as described above. This consistent with a small bowel obstruction. 2. Left-sided nephrolithiasis. No hydronephrosis. 3. No change in the mild distal esophageal wall thickening. This may represent a mild esophagitis. 4. Normal appendix. 5. Colonic diverticulosis. ACT 112: Negative or not required by law. Electronically signed by: Abhijit Valerio M.D. 12/02/2020 9:32 AM Chest X-Ray 12/02/20 08:41 XR chest 1V portable HISTORY: Generalized abdominal pain. Possible small bowel obstruction. COMPARISON: Chest 06/22/2020. FINDINGS: No pneumothorax. No pleural effusions. The cardiac silhouette is borderline enlarged. No focal lung consolidations to suggest pneumonia. No evidence for pulmonary edema. IMPRESSION: No acute process. ACT 112: Negative or not required by law. Electronically signed by: Abhijit Valerio M.D. 12/02/2020 8:55 AM Code Status & VTE Plan Code Status Full code VTE Prophylaxis Plan VTE Prophylaxis will be ordered: Yes PG Care Time/CCT Total # of Minutes Spent Total Time Spent with Patient: Total time spent is greater than 50% in coordination of care (as documented) at patient's floor/unit and/or counseling patient: Coding Level of Care Code 39486 Initial Inpt Care Lvl 3 Diagnoses Small bowel obstruction K56.609 Esophageal dysphagia R13.10 Obstructive sleep apnea G47.33 Atrial fibrillation I48.91 Hypertension I10 GERD (gastroesophageal reflux disease) K21.9 Esophagitis K20.90
[2020-12-02] MEDS ORDERED: ACETAMINOPHEN 1,000 MG/100 ML VIAL IV PRN (11:23)
[2020-12-02] MEDS ORDERED: KETOROLAC TROMETHAMINE 15 MG/ML VIAL IV PRN (11:24)
[2020-12-02] MEDS ORDERED: FAMOTIDINE 20MG/5ML IV PUSH IV ONE (13:36)
[2020-12-02] MEDS: FAMOTIDINE 20 MG in SYRINGE 3 ML IV SCH ×2 (13:38→21:56)
[2020-12-02] MEDS ORDERED: METOPROLOL TARTRATE 1 MG/ML VIAL IV PRN (16:17)
[2020-12-02] MEDS ORDERED: ONDANSETRON INJ 2 MG/ML 2 ML VIAL IV PRN (16:57)
[2020-12-02] MEDS ORDERED: PIPERACILL/TAZOBAC CONSULT ACTIVE PRN (16:57)
[2020-12-02] MEDS: LACTATED RINGER'S 1,000 ML IV SCH (17:03)
[2020-12-02] MEDS ORDERED: PIPERACILLIN/TAZOBACTAM 4.5 GM in DEXTROSE 5% 100 ML IV ONE (17:30)
[2020-12-02] MEDS ORDERED: PNEUMOCOCCAL POLYSACCHARIDES 25 MCG/0.5 ML VIAL/SYR IM ONE (19:18)
[2020-12-02] MEDS ORDERED: INFLUENZA VACCINE HIGH DOSE PF 65+ 0.7 ML SYR IM ONE (19:18)
--- NOTE | 2020-12-02 20:25 | Surgery Consultation ---
Date of Consultation December 02, 2020 Assessment & Plan (1) Small bowel obstruction: Patient has been admitted by the hospital service we recommend proceeding as follows: Provide analgesics Provide antiemetics Continue n.p.o. status and NG tube to low continuous suction. Consideration will be given to removing NG tube based on symptomatic relief and return of bowel function. Once patient's NG tube ably removed diet can be slowly reintroduced beginning with sips of clear liquids but again this will be dependent on return of bowel function Provide hydration with IV fluids while patient is n.p.o. Patient is noted to have a leukocytosis on admission labs. The cause of this is unclear. He has been placed on Zosyn which we will continue for the present time. We recommend repeating labs in the morning. We will continue following with patient is hospitalized. History of Present Illness Reason for Consultation: Small bowel obstruction Attending Physician: Ramon Leblanc MD History of Present Illness This is 80-year-old male who presented to [facility] emergency department earlier today secondary to abdominal pain. Patient says he has been having abdominal pain for approximately 1 to 2 days. He notes that the pain became much worse so he presented to the emergency department. He does not note any palliative or provocative factors prior to arrival to the emergency department. He said the pain does not radiate. He notes he has not had a bowel movement approximately 4 days. With his abdominal pain he has not had any nausea or vomiting. He denies any fevers, shakes, chills. Patient says his only abdominal surgery was a left inguinal herniorrhaphy done "many years ago" by Dr. Barrera. Since admission patient has had labs and imaging which I independently reviewed. A chest x-ray showed no evidence of pneumonia. A CT scan of the abdomen showed the patient had a distended and fluid-filled stomach along with a distended proximal small bowel with a transition point near the mid jejunum. This was felt to represent a small bowel obstruction. Labs include a CBC her white blood cell count was 23.2. His hemoglobin, hematocrit, and platelet count were within normal range. Chemistry profile showed sodium, potassium, and creatinine were within normal range. He had a slight elevation of his BUN at 23. There were no significant elevation of his LFTs or lipase. A Covid test was performed and was noted to be negative. In the emergency department patient did have an NG tube placed. Since the NG tube was placed proximally 600 cc of drainage was obtained. Patient did note great deal of symptomatic relief concerning his abdominal complaints since this modality was utilized. In addition, the patient notes that since admission he has begun to pass flatus. It is noteworthy mention that this patient does have history of atrial fibrillation for which he takes Xarelto. Takes his medication in the evening but notes that he did not take last evening's dose and believes his most recent dose was 2 evenings ago. At the time of my interview he is resting comfortably in bed and he was in no distress. Allergies Allergy/AdvReac Type Severity Reaction Status Date / Time No Known Drug Allergies Allergy Verified 12/02/20 10:11 Home Medications Medication Instructions Recorded Confirmed Type cholecalciferol (vitamin D3) 25 1,000 unit PO QAM 03/06/18 12/02/20 History mcg (1,000 unit) capsule (Vitamin D3) CPAP Machine #1 ea 03/10/19 09/06/20 Rx ascorbic acid (vitamin C) 500 mg 500 mg PO QAM 06/06/19 12/02/20 History tablet multivitamin (Multiple Vitamins) 1 tab PO QAM 06/06/19 12/02/20 History CPAP Machine #1 ea 06/09/19 09/06/20 Rx doxazosin 2 mg tablet 2 mg PO QPM #90 tab 07/27/20 12/02/20 Rx losartan 100 mg tablet 100 mg PO QAM #90 tab 09/02/20 12/02/20 Rx atorvastatin 10 mg tablet 10 mg PO HS #90 tab 09/21/20 12/02/20 Rx pantoprazole 20 mg tablet,delayed 20 mg PO QAM #90 tab 09/21/20 12/02/20 Rx release metoprolol tartrate 25 mg tablet 12.5 mg PO BID #30 tab 09/22/20 12/02/20 Rx rivaroxaban 20 mg tablet (Xarelto) 20 mg PO HS #30 tab 09/22/20 12/02/20 Rx hydrochlorothiazide 12.5 mg tablet 12.5 mg PO DAILY #90 tab 10/05/20 12/02/20 Rx flecainide 100 mg tablet 0 mg PO Q12H 12/02/20 12/02/20 History ondansetron HCl 4 mg tablet 4 mg PO Q6H PRN 12/02/20 12/02/20 History Patient History Medical History Abdominal mass Achalasia Atrial fibrillation on xarelto; follows with Dr. Piedra Chronic back pain Chronic venous insufficiency GERD (gastroesophageal reflux disease) Hyperlipidemia Hypertension Left bundle branch block On anticoagulant therapy XARELTO DAILY Osteoarthritis Sensorineural hearing loss (SNHL) of left ear with restricted hearing of right ear Sleep apnea CPAP SOB (shortness of breath) on exertion Surgical History History of arthroscopy RIGHT ELBOW History of arthroscopy LEFT KNEE History of cataract surgery History of colonoscopy X 2 History of esophagogastroduodenoscopy (EGD) History of herniorrhaphy (2009) Left inguinal hernia with mesh. Dr. Barrera History of total hip arthroplasty LEFT Family History Father Pancreatic cancer Grandfather (Maternal) Myocardial infarction Grandfather (Paternal) Myocardial infarction Mother Alzheimer disease Other Cancer Hypertension No family history of adverse response to anesthesia Denies family history of Ovarian cancer Prostate cancer Breast cancer Lung cancer Colorectal cancer Stroke Social History Smoking Status: Former smoker Tobacco Type: Cigarettes Age Started Using Tobacco: 18; Age Quit Using Tobacco: 68; packs per day: 1.5; Years Smoked: 50; Cigarettes Per Day: QUIT SEVERAL YEARS AGO; Number of Years Since Quit: 10; Second Hand Exposure: No; Hx Alcohol Use: No Hx Substance Use: No Preferred Language: Jamaican Communication Ability: Effective Visual Impairment: No Limitations Hearing Ability: Normal Tool Radial Drill Press Set Up Operator Required: No Beliefs That Will Affect Care: None marital status: Current Living Situation: Spouse Current Living Situation Comment: home with spouse. retired. current occupational status: retired Feels Safe at Home: Yes Dental Care, Regularly: No Physical Activity Frequency: Does not Exercise Seatbelt Use: always Assistive Devices: None Review of Systems Constitutional: no fever and no chills Eyes: no diplopia Ear, Nose, Mouth, Throat: no ear pain Respiratory: no cough and no dyspnea Cardiovascular: no chest pain Gastrointestinal: + abdominal pain; no nausea and no vomiting Genitourinary: no dysuria Musculoskeletal: no back pain Integumentary: no rash Neurologic: no localized weakness Physical Exam Constitutional: well developed and well nourished; no acute distress Eyes: no conjunctival abnormality ENMT: Ears: no hearing impairment Mouth: no oropharynx abnormality NG tube in place Neck: trachea midline Respiratory: normal respiratory effort; no respiratory distress and no labored breathing Cardiovascular: Rate/Rhythm: regular rate and regular rhythm Gastrointestinal (Abdomen): Abdomen is rotund but soft. Bowel sounds are present but hypoactive. There is no pain with palpation. There is no rebound tenderness or guarding. Not appreciate any hernias. Musculoskeletal: No calf tenderness Skin: no rashes Neurologic: moves all extremities Psychiatric: A+Ox3, euthymic affect Results & Data ([facility]) Vital Signs (Past 12 Hours) Vital Signs Temp Pulse Pulse Resp BP BP Pulse Ox 12/02/20 19:08 36.7 C 72 19 153/98 H 97 12/02/20 16:57 36.7 C 72 19 153/98 H 97 12/02/20 16:35 36.7 C 72 19 153/98 H 97 12/02/20 16:00 78 17 138/84 98 12/02/20 15:30 77 18 134/80 96 12/02/20 15:00 70 14 105/75 99 12/02/20 14:30 61 20 128/66 98 12/02/20 14:00 74 15 115/74 98 12/02/20 13:30 70 12 137/84 98 12/02/20 13:00 57 L 22 145/86 H 98 12/02/20 12:30 71 22 98 12/02/20 12:00 87 19 149/75 H 94 12/02/20 11:30 76 19 95 12/02/20 11:00 63 19 94 12/02/20 10:30 63 13 146/74 H 96 12/02/20 10:00 62 13 152/70 H 96 12/02/20 09:30 58 L 6 L 126/70 94 12/02/20 09:00 63 15 150/61 H 94 12/02/20 08:31 64 18 123/71 94 PG Care Time/CCT Total # of Minutes Spent Total Time Spent with Patient: Total time spent is greater than 50% in coordination of care (as documented) at patient's floor/unit and/or counseling patient: Coding Level of Care Code 18690 Inpt Consult Level 5 Diagnoses Small bowel obstruction K56.609
[2020-12-02] MEDS: PIPERACILLIN/TAZOBACTAM 4.5 GM in DEXTROSE 5% 100 ML IV SCH (21:56)
[2020-12-02 22:24] LABS: Appearance Urine Clear (Clear); Bacteria Urine Automated Negative (Negative); Bilirubin Urine Negative (Negative); Blood Urine Negative (Negative); Color Urine Dark Yellow; Glucose Urine UA Negative (Negative); Ketones Urine Trace (Negative); Leukocyte Esterase Urine Negative (Negative); Nitrite Urine Negative (Negative); Protein Urine 1+ (Negative); Specific Gravity Urine > 1.045 (1.000-1.030); Urobilinogen Urine Negative (Negative); pH Urine 5.5 (4.5-7.5)
[2020-12-03] MEDS: LACTATED RINGER'S 1,000 ML IV SCH (02:48)
[2020-12-03] MEDS: PIPERACILLIN/TAZOBACTAM 4.5 GM in DEXTROSE 5% 100 ML IV SCH ×3 (05:57→21:45)
[2020-12-03 06:55] LABS: Basophils # (auto) 0.02 K/uL (0-0.2); Basophils % (auto) 0.1 %; Eosinophils # (auto) 0.05 K/uL (0-0.5); Eosinophils % (auto) 0.3 %; Hematocrit (blood only) 37.5 % (42-52); Hemoglobin 12.6 g/dL (14.0-18.0); Immature Granulocytes # (auto) 0.03 K/uL (0.00-0.02); Immature Granulocytes % (auto) 0.2 %; Lymphocytes # (auto) 1.77 K/uL (1.2-3.4); Lymphocytes % (auto) 12.2 %; Mean Corpuscular Hemoglobin 32.7 pg (25-34); Mean Corpuscular Hgb Conc 33.6 g/dL (32-36); Mean Corpuscular Volume 97.4 fL (80-100); Mean Platelet Volume 10.2 fL (7.4-10.4); Monocytes # (auto) 1.46 K/uL (0.11-0.59); Neutrophils % (auto) 77.2 %; Platelet Count 172 K/uL (130-400); RDW Coefficient of Variation 13.7 % (11.5-14.5); RDW Standard Deviation 48.7 fL (36.4-46.3); Red Blood Count 3.85 M/uL (4.7-6.1); White Blood Count 14.53 K/uL (4.8-10.8)
[2020-12-03 07:22] LABS: Albumin Level 3.2 gm/dl (3.4-5.0); BUN Creatinine Ratio 20.6 (10-20); Calcium 9.1 mg/dl (8.5-10.1); Creatinine Clr Calc Pharmacy 67.2 ml/min; Est GFR (African American) 74.1 ml/min; Magnesium 2.4 mg/dl (1.8-2.4); Potassium 3.3 mmol/L (3.5-5.1)
[2020-12-03 07:28] LABS: Albumin Globulin Ratio 0.9 (0.9-2); Bilirubin,Total 0.9 mg/dl (0.2-1); Globulin 3.6 gm/dl (2.5-4.0); Phosphorus 3.1 mg/dl (2.5-4.9); Total Protein 6.8 gm/dl (6.4-8.2)
--- NOTE | 2020-12-03 08:14 | Surgery Progress Note ---
Date of Service December 03, 2020 Assessment & Plan (1) Small bowel obstruction: Plan: clinically better keep ngt at least another 24 hours....repeat KUB if continues to improve can consider clamping trial tomorrow [facility] for weekend. Admission and Anticipated Discharge Date Admission Date: December 02, 2020 Subjective pt feeling much better already. no nausea. no pain. Physical Exam Constitutional: WD/WN, vitals as above no acute distress and not ill appearing Eyes: PERRL, conjunctivae normal, anicteric sclerae EOM intact bilaterally ENMT: external ear and nose normal, oropharynx normal Ears: no hearing impairment Neck: trachea midline, no thyromegaly Respiratory: normal respiratory effort; no respiratory distress and does not use accessory muscles Cardiovascular: Rate/Rhythm: regular rate and regular rhythm Gastrointestinal (Abdomen): soft. non-distended. nt. Skin: no rashes, warm and dry Psychiatric: Orientation: alert, oriented x 3 and cooperative Results & Data ([facility]) Vital Signs (Past 12 Hours) Vital Signs Temp Pulse Pulse Resp BP Pulse Ox 12/03/20 06:35 36.8 C 48 L 18 112/65 97 12/03/20 04:00 36.7 C 51 L 18 144/77 H 96 12/02/20 23:31 49 L 12/02/20 23:00 36.6 C 49 L 18 134/74 98 PG Care Time/CCT Total # of Minutes Spent Total Time Spent with Patient: Total time spent is greater than 50% in coordination of care (as documented) at patient's floor/unit and/or counseling patient: Coding Level of Care Code 49840 Subseq Hosp Care Lvl 3 Diagnoses Small bowel obstruction K56.609
[2020-12-03] MEDS: NSS + 20MEQ KCL 20 MEQ/1,000 ML BAG IV SCH ×2 (09:05→17:21)
[2020-12-03] MEDS: FAMOTIDINE 20 MG in SYRINGE 3 ML IV SCH ×2 (09:40→21:45)
--- NOTE | 2020-12-03 10:25 | XRay Report ---
KUB HISTORY: Follow up study in a patient with reported small bowel obstruction SBO COMPARISON: CT abdomen and pelvis 12/02/2020 FINDINGS: Air is noted within loops of both large and small bowel. No definite pathologically dilated loops of small bowel are identified. No renal calculi. No ureteral calculi. No pneumoperitoneum or pneumatosis. Degenerative changes of the spine, pelvis and right hip. Left hip total joint arthroplas ty. No fracture. IMPRESSION: There is decreased small bowel distention from yesterday's study. ACT 112: Negative or not required by law. The above report was generated using voice recognition software. It may contain grammatical, syntax o r spelling errors. Electronically signed by: Ortiz Hill M.D. 12/03/2020 10:24 AM
[2020-12-03] MEDS: PANTOprazole 40 MG in SYRINGE 0 ML IV SCH (12:29)
--- NOTE | 2020-12-03 17:07 | Electrocardiogram Report ---
Test Reason : Blood Pressure : / mmHG Vent. Rate : 077 BPM Atrial Rate : 077 BPM P-R Int : 238 ms QRS Dur : 138 ms QT Int : 390 ms P-R-T Axes : 039 -67 047 degrees QTc Int : 441 ms Sinus rhythm with 1st degree A-V block with Fusion complexes Right bundle branch block Left anterior fascicular block Bifascicular block Voltage criteria for left ventricular hypertrophy Abnormal ECG When compared with ECG of 03-DEC-2009 09:36, Fusion complexes are now Present [place] interval has increased (RBBB and left anterior fascicular block) is now Present Confirmed by Tim Franklin ([id number]) on 12/03/2020 5:07:38 PM Referred By: REFERRED SELF Confirmed By:Anthony Franklin
--- NOTE | 2020-12-03 20:23 | Hospitalist Progress Note ---
Date of Service December 03, 2020 Assessment & Plan (1) Small bowel obstruction: Plan: Small bowel obstruction- Transition point admit jejunum Fluid-filled and distended stomach\ NPO NG tube to low intermittent suction Zofran 4 mg IV every 6 hours as needed Zosyn 4.5 g IV every 8 hours Famotidine 20 mg IV every 12 hours Acetaminophen 1000 mg IV every 8 hours as needed mild pain or fever Toradol 15 mg IV every 6 hours as needed for moderate pain Consult general surgery: appreciate input Patient is improving. Will likely clamp NG tube tomorrow if continues to improve and feel well. (2) Esophageal dysphagia: Plan: Esophageal dysphagia/GERD/esophagitis- Place on famotidine 20 mg IV every [address] on pantoprazole 40 mg IV daily (3) Obstructive sleep apnea: Plan: CPAP at bedtime (4) Atrial fibrillation: Plan: Atrial fibrillation/hypertension- Hold doxazosin, flecainide, HCTZ, losartan, metoprolol tartrate and Xarelto while n.p.o. Lopressor 5 mg IV every 4 hours as needed heart rate greater than 110 or systolic blood pressure greater than 60 (5) Hypertension: Plan: See above (6) GERD (gastroesophageal reflux disease): Plan: See above (7) Esophagitis: Plan: See above Admission and Anticipated Discharge Date Admission Date: December 02, 2020 Subjective Patient states that he is feeling better. He is passing some gas. Patient denies any pain. Review of Systems Review of Systems: All systems reviewed & are unremarkable except as noted in HPI & below Physical Exam Physical Exam: The patient is awake, alert and oriented 3, well developed and well nourished, normocephalic and atraumatic, lying in bed and in no acute distress. HEENT--PERRL, EOMI, mucous membranes and oropharynx dry. Neck--supple. No JVD. No bruits. Thyroid normal, trachea midline, no a denopathy. Heart--normal S1 and S2. No murmurs, rubs or gallops. Lungs--clear bilaterally, no respiratory distress, no accessory muscle use. Abdomen--decreased bowel sounds and soft. Nontender. Nondistended. Obese Extremities--no cyanosis or clubbing. No edema. Dermatologic--normal skin turgor, normal color, no abnormal lymph nodes, no rash. Neurologic--cranial nerves II through XII grossly intact. Rheumatologic--normal range of motion. Psychiatric--normal affect. Results & Data Results & Data ([facility]) Vital Signs (Past 12 Hours) Vital Signs Temp Pulse Pulse Resp BP Pulse Ox 12/03/20 18:42 36.6 C 50 L 18 114/63 94 12/03/20 15:32 36.8 C 54 L 20 135/74 94 12/03/20 15:10 67 12/03/20 11:43 36.8 C 50 L 18 152/72 H 92 12/03/20 11:01 49 L PG Care Time/CCT Total # of Minutes Spent Total Time Spent with Patient: Total time spent is greater than 50% in coordination of care (as documented) at patient's floor/unit and/or counseling patient: Coding Level of Care Code 81125 Subseq Hosp Care Lvl 2 Diagnoses Small bowel obstruction K56.609 Esophageal dysphagia R13.10 Obstructive sleep apnea G47.33 Atrial fibrillation I48.91 Hypertension I10 GERD (gastroesophageal reflux disease) K21.9 Esophagitis K20.90 Time Spent (min) 25
[2020-12-04] MEDS: NSS + 20MEQ KCL 20 MEQ/1,000 ML BAG IV SCH ×3 (01:02→16:17)
[2020-12-04] MEDS: PIPERACILLIN/TAZOBACTAM 4.5 GM in DEXTROSE 5% 100 ML IV SCH ×3 (05:32→21:58)
[2020-12-04 07:40] LABS: Basophils # (auto) 0.01 K/uL (0-0.2); Basophils % (auto) 0.1 %; Eosinophils # (auto) 0.22 K/uL (0-0.5); Eosinophils % (auto) 2.4 %; Hematocrit (blood only) 35.8 % (42-52); Immature Granulocytes # (auto) 0.01 K/uL (0.00-0.02); Immature Granulocytes % (auto) 0.1 %; Lymphocytes # (auto) 1.83 K/uL (1.2-3.4); Lymphocytes % (auto) 19.7 %; Mean Corpuscular Hemoglobin 32.6 pg (25-34); Mean Corpuscular Hgb Conc 33.5 g/dL (32-36); Mean Corpuscular Volume 97.3 fL (80-100); Mean Platelet Volume 10.6 fL (7.4-10.4); Monocytes % (auto) 8.6 %; Neutrophils % (auto) 69.1 %; Platelet Count 159 K/uL (130-400); RDW Coefficient of Variation 13.4 % (11.5-14.5); RDW Standard Deviation 47.5 fL (36.4-46.3); Red Blood Count 3.68 M/uL (4.7-6.1); White Blood Count 9.27 K/uL (4.8-10.8)
[2020-12-04 07:58] LABS: Albumin Level 2.9 gm/dl (3.4-5.0); Calcium 8.7 mg/dl (8.5-10.1); Creatinine Clr Calc Pharmacy 80.3 ml/min; Est GFR (African American) 89.6 ml/min; Est GFR (Non-African American) 77.3 ml/min; Magnesium 2.1 mg/dl (1.8-2.4); Potassium 3.8 mmol/L (3.5-5.1)
[2020-12-04 08:00] LABS: Albumin Globulin Ratio 0.8 (0.9-2); Bilirubin,Total 0.9 mg/dl (0.2-1); Globulin 3.5 gm/dl (2.5-4.0); Phosphorus 2.7 mg/dl (2.5-4.9); Total Protein 6.4 gm/dl (6.4-8.2)
[2020-12-04] MEDS: FAMOTIDINE 20 MG in SYRINGE 3 ML IV SCH ×2 (08:26→20:45)
--- NOTE | 2020-12-04 11:39 | Surgery Progress Note ---
Date of Service December 04, 2020 Assessment & Plan (1) Small bowel obstruction: Plan: F/U SBO, pt is doing better, no abdominal pain, pass gas Plan: pull out NG tube, clear diet, OOB will F/U Admission and Anticipated Discharge Date Admission Date: December 02, 2020 Subjective Patient states that he is feeling better. He is passing some gas. Patient denies any pain. pt feels better, pass some gas, no abdominal pain, NG 1100, Physical Exam Constitutional: WD/WN, vitals as above Eyes: PERRL, conjunctivae normal, anicteric sclerae Neck: trachea midline, no thyromegaly Respiratory: normal respiratory effort, lungs clear to auscultation Cardiovascular: RRR, no murmur, no edema Gastrointestinal (Abdomen): soft, NT, ND, BS + Neurologic: patellar DTR's 2+ bilat, sensation intact Psychiatric: A+Ox3, euthymic affect Results & Data ([facility]) Vital Signs (Past 12 Hours) Vital Signs Temp Pulse Pulse Resp BP Pulse Ox 12/04/20 10:44 50 L 12/04/20 08:00 36.8 C 48 L 18 154/67 H 94 12/04/20 03:14 37.1 C 48 L 17 140/68 93 12/04/20 02:21 51 L Laboratory Results Abnormal lab results 12/04/20 12/04/20 Range/Units 07:01 07:01 RBC 3.68 L (4.7-6.1) M/uL Hgb 12.0 L (14.0-18.0) g/dL Hct 35.8 L (42-52) % RDW Std Deviation 47.5 H (36.4-46.3) fL MPV 10.6 H (7.4-10.4) fL [place] # (Auto) 0.80 H (0.11-0.59) K/uL Chloride 111 H (98-107) mmol/L BUN 19 H (7-18) mg/dl Albumin 2.9 L (3.4-5.0) gm/dl Albumin/Globulin Ratio 0.8 L (0.9-2)
[2020-12-04] MEDS: PANTOprazole 40 MG in SYRINGE 0 ML IV SCH (12:30)
--- NOTE | 2020-12-04 20:53 | Hospitalist Progress Note ---
Date of Service December 04, 2020 Assessment & Plan (1) Small bowel obstruction: Plan: Small bowel obstruction- Transition point admit jejunum Zofran 4 mg IV every 6 hours as needed Zosyn 4.5 g IV every 8 hours Famotidine 20 mg IV every 12 hours Patient continues to improve. NG tube has been removed. Appreciate input from Gen Surgery. Now on a diet. (2) Esophageal dysphagia: Plan: Esophageal dysphagia/GERD/esophagitis- Place on famotidine 20 mg IV every [address] on pantoprazole 40 mg IV daily (3) Obstructive sleep apnea: Plan: CPAP at bedtime (4) Atrial fibrillation: Plan: Atrial fibrillation/hypertension- Hold doxazosin, flecainide, HCTZ, losartan, metoprolol tartrate and Xarelto while n.p.o. Lopressor 5 mg IV every 4 hours as needed heart rate greater than 110 or systolic blood pressure greater than 60 (5) Hypertension: Plan: See above (6) GERD (gastroesophageal reflux disease): Plan: See above (7) Esophagitis: Plan: See above Admission and Anticipated Discharge Date Admission Date: December 02, 2020 Subjective Patient reports feeling better. He denies havign a BM today. Review of Systems Review of Systems: All systems reviewed & are unremarkable except as noted in HPI & below Physical Exam Physical Exam: The patient is awake, alert and oriented 3, well developed and well nourished, normocephalic and atraumatic, lying in bed and in no acute d istress. HEENT--PERRL, EOMI, mucous membranes and oropharynx dry. Neck--supple. No JVD. No bruits. Thyroid normal, trachea midline, no adenopathy. Heart--normal S1 and S2. No murmurs, rubs or gallops. Lungs--clear bilaterally, no respiratory distress, no accessory muscle use. Abdomen--decreased bowel sounds and soft. Nontender. Nondistended. Obese Extremities--no cyanosis or clubbing. No edema. Dermatologic--normal skin turgor, normal color, no abnormal lymph nodes, no rash. Neurologic--cranial nerves II through XII grossly intact. Rheumatologic--normal range of motion. Psychiatric--normal affect. Results & Data Results & Data ([facility]) Vital Signs (Past 12 Hours) Vital Signs Temp Pulse Pulse Resp BP Pulse Ox 12/04/20 19:50 36.5 C 66 18 159/94 H 98 12/04/20 18:00 70 12/04/20 15:26 36.9 C 45 L 18 109/56 L 96 12/04/20 12:00 36.9 C 48 L 18 143/60 H 94 12/04/20 10:44 50 L PG Care Time/CCT Total # of Minutes Spent Total Time Spent with Patient: Total time spent is greater than 50% in coordination of care (as documented) at patient's floor/unit and/or counseling patient: Coding Level of Care Code 61080 Subseq Hosp Care Lvl 2 Diagnoses Small bowel obstruction K56.609 Esophageal dysphagia R13.10 Obstructive sleep apnea G47.33 Atrial fibrillation I48.91 Hypertension I10 GERD (gastroesophageal reflux disease) K21.9 Esophagitis K20.90 Time Spent (min) 25
[2020-12-05] MEDS: PIPERACILLIN/TAZOBACTAM 4.5 GM in DEXTROSE 5% 100 ML IV SCH (06:23)
[2020-12-05 07:40] LABS: Basophils # (auto) 0.01 K/uL (0-0.2); Basophils % (auto) 0.1 %; Eosinophils # (auto) 0.24 K/uL (0-0.5); Eosinophils % (auto) 2.8 %; Hematocrit (blood only) 34.9 % (42-52); Hemoglobin 11.7 g/dL (14.0-18.0); Immature Granulocytes # (auto) 0.02 K/uL (0.00-0.02); Immature Granulocytes % (auto) 0.2 %; Lymphocytes # (auto) 1.75 K/uL (1.2-3.4); Lymphocytes % (auto) 20.7 %; Mean Corpuscular Hemoglobin 32.1 pg (25-34); Mean Corpuscular Hgb Conc 33.5 g/dL (32-36); Mean Corpuscular Volume 95.9 fL (80-100); Mean Platelet Volume 11.1 fL (7.4-10.4); Monocytes # (auto) 0.76 K/uL (0.11-0.59); Neutrophils # (auto) 5.69 K/uL (1.4-6.5); Neutrophils % (auto) 67.2 %; Platelet Count 166 K/uL (130-400); RDW Standard Deviation 45.5 fL (36.4-46.3); Red Blood Count 3.64 M/uL (4.7-6.1); White Blood Count 8.47 K/uL (4.8-10.8)
[2020-12-05 08:00] LABS: Albumin Level 2.9 gm/dl (3.4-5.0); BUN Creatinine Ratio 12.3 (10-20); Calcium 8.8 mg/dl (8.5-10.1); Creatinine Clr Calc Pharmacy 80.1 ml/min; Est GFR (African American) 88.5 ml/min; Est GFR (Non-African American) 76.4 ml/min; Magnesium 2.1 mg/dl (1.8-2.4); Potassium 3.6 mmol/L (3.5-5.1)
[2020-12-05 08:02] LABS: Albumin Globulin Ratio 0.8 (0.9-2); Bilirubin,Total 1.3 mg/dl (0.2-1); Globulin 3.4 gm/dl (2.5-4.0); Phosphorus 2.7 mg/dl (2.5-4.9); Total Protein 6.3 gm/dl (6.4-8.2)
[2020-12-05] MEDS: FAMOTIDINE 20 MG in SYRINGE 3 ML IV SCH ×2 (09:29→20:14)
[2020-12-05] MEDS: PANTOprazole 40 MG in SYRINGE 0 ML IV SCH (10:36)
--- NOTE | 2020-12-05 12:06 | Surgery Progress Note ---
Date of Service December 05, 2020 Assessment & Plan (1) Small bowel obstruction: Plan: F/U SBO, pt is doing better, no abdominal pain, pass gas Plan: pull out NG tube, clear diet, OOB will F/U 12/05/2020 12PM doing better, pass gas, no BM yet, full liquid diet miralax may D/C home tomorrow, Admission and Anticipated Discharge Date Admission Date: December 02, 2020 Subjective Patient reports feeling better. He denies havign a BM today. 12/05/2020 12PM doing better, pass gas, no abdominal pain, tolerated clear diet, Physical Exam Constitutional: WD/WN, vitals as above Eyes: PERRL, conjunctivae normal, anicteric sclerae Neck: trachea midline, no thyromegaly Respiratory: normal respiratory effort, lungs clear to auscultation Cardiovascular: RRR, no murmur, no edema Gastrointestinal (Abdomen): soft, NT, Nd BS + Neurologic: patellar DTR's 2+ bilat, sensation intact Psychiatric: A+Ox3, euthymic affect Results & Data ([facility]) Vital Signs (Past 12 Hours) Vital Signs Temp Pulse Pulse Resp BP BP Pulse Ox 12/05/20 11:02 48 L 12/05/20 08:00 36.7 C 45 L 18 109/64 96 12/05/20 04:13 43 L 12/05/20 02:33 36.9 C 49 L 17 168/74 H 96
[2020-12-05] MEDS ORDERED: POLYETHYLENE (MIRALAX) 17 GM PACK PO PRN (12:07)
--- NOTE | 2020-12-05 20:00 | Hospitalist Progress Note ---
Date of Service December 05, 2020 Assessment & Plan (1) Small bowel obstruction: Plan: Small bowel obstruction- Transition point admit jejunum Zofran 4 mg IV every 6 hours as needed Zosyn 4.5 g IV every 8 hours Famotidine 20 mg IV every 12 hours Patient continues to improve. NG tube has been removed. Patient had a small BM. Will advance to a full liquid diet. Appreciate input from Gen Surgery. Now on a diet. (2) Esophageal dysphagia: Plan: Esophageal dysphagia/GERD/esophagitis- Place on famotidine 20 mg IV every [address] on pantoprazole 40 mg IV daily (3) Obstructive sleep apnea: Plan: CPAP at bedtime (4) Atrial fibrillation: Plan: Chronic atrial fibrillation Atrial fibrillation/hypertension- Held flecainide, HCTZ, losartan, metoprolol tartrate and Xarelto while n.p.o. BP is soft, so will continue to hold BP meds. Doxazosin will be restarted however. Lopressor 5 mg IV every 4 hours as needed heart rate greater than 110 or systolic blood pressure greater than 60 (5) Hypertension: Plan: See above (6) GERD (gastroesophageal reflux disease): Plan: See above (7) Esophagitis: Plan: See above (8) Chronic atrial fibrillation: Plan: as above. Admission and Anticipated Discharge Date Admission Date: December 02, 2020 Subjective Patien ermelinda he no longer has abdominal pain. He has been ambulating the halls. He feels less bloated and is passing gas. Nurse states ater my visit with the patient, that he had a small BM. Review of Systems Review of Systems: All systems reviewed & are unremarkable except as noted in HPI & below Physical Exam Physical Exam: The patient is awake, alert and oriented 3, well developed and well nourished, normocephalic and atraumatic, lying in bed and in no acute distress. HEENT--PERRL, EOMI, mucous membranes and oropharynx dry. Neck--supple. No JVD. No bruits. Thyroid normal, trachea midline, no adenopathy. Heart--normal S1 and S2. No murmurs, rubs or gallops. Lungs--clear bilaterally, no respiratory distress, no accessory muscle use. Abdomen--decreased bowel sounds and soft. mild tenderness. Nondistended. Obese Extremities--no cyanosis or clubbing. No edema. Dermatologic--normal skin turgor, normal color, no abnormal lymph nodes, no rash. Neurologic--cranial nerves II through XII grossly intact. Rheumatologic--normal range of motion. Psychiatric--normal affect. Results & Data Results & Data ([facility]) Vital Signs (Past 12 Hours) Vital Signs Temp Pulse Pulse Resp BP BP Pulse Ox 12/05/20 16:00 36.8 C 50 L 18 153/68 H 96 12/05/20 15:43 68 12/05/20 12:00 36.7 C 53 L 18 112/61 97 12/05/20 11:02 48 L PG Care Time/CCT Total # of Minutes Spent Total Time Spent with Patient: Total time spent is greater than 50% in coordination of care (as documented) at patient's floor/unit and/or counseling patient: Coding Level of Care Code 40229 Subseq Hosp Care Lvl 2 Diagnoses Small bowel obstruction K56.609 Esophageal dysphagia R13.10 Obstructive sleep apnea G47.33 Atrial fibrillation I48.91 Hypertension I10 GERD (gastroesophageal reflux disease) K21.9 Esophagitis K20.90 Chronic atrial fibrillation I48.20
[2020-12-05] MEDS ORDERED: RIVAROXABAN 20 MG TAB PO SCH (21:00)
[2020-12-05] MEDS ORDERED: ATORVASTATIN 10 MG TAB PO SCH (21:00)
[2020-12-05] MEDS ORDERED: DOXAZosin MESYLATE TAB 2 MG TAB PO SCH (21:00)
[2020-12-05] MEDS ORDERED: MELATONIN 3 MG TAB PO PRN (21:35)
[2020-12-06] MEDS: FAMOTIDINE 20 MG in SYRINGE 3 ML IV SCH (08:25)
[2020-12-06] MEDS ORDERED: CHOLECALCIFEROL 1,000 UNITS 25 MCG TAB PO SCH (09:00)
[2020-12-06] MEDS ORDERED: PANTOprazole 40 MG TAB PO SCH (09:00)
--- NOTE | 2020-12-06 10:25 | Surgery Progress Note ---
Date of Service December 06, 2020 Assessment & Plan (1) Small bowel obstruction: Plan: ok for d/c if tolerates lunch had extensive UGI w/u 2-3 years ago, if symptoms recur would recommend repeat SBFT Admission and Anticipated Discharge Date Admission Date: December 02, 2020 Subjective BM x2, advancing to low fiber for lunch, no nausea Physical Exam Gastrointestinal (Abdomen): Inspection/Auscultation: abdomen not distended Percussion/Palpation: abdomen soft; abdomen nontender Results & Data ([facility]) Vital Signs (Past 12 Hours) Vital Signs Temp Pulse Pulse Resp BP Pulse Ox 12/06/20 08:00 49 L 12/06/20 07:39 36.8 C 48 L 18 139/74 95 12/06/20 05:14 37.1 C 43 L 20 134/56 L 95 12/06/20 00:00 51 L 12/05/20 23:00 36.8 C 45 L 18 129/68 96 PG Care Time/CCT Total # of Minutes Spent Total Time Spent with Patient: Total time spent is greater than 50% in coordination of care (as documented) at patient's floor/unit and/or counseling patient: Coding Level of Care Code 61760 Subseq Hosp Care Lvl 1 Diagnoses Small bowel obstruction K56.609
--- NOTE | 2020-12-06 19:32 | Discharge Summary ---
Date of Service December 06, 2020 Admission HPI Per Admitting Provider The patient is a 80-year-old male with a past medical history including esophageal dysphagia, AILYN, atrial fibrillation, hypertension, CVI, GERD, dyslipidemia, generalized osteoarthritis,, SNHL left, obesity, bilateral lower extremity edema and achalasia. The patient presents to emergency department with 2 days of worsening abdominal pain, nausea, vomiting, abdominal distention and bloating. He was unable to take his morning medications due to the symptoms. CT scan of abdomen and pelvis in the ED: Distended and fluid-filled stomach and proximal small bowel with a focal transition point within the mid jejunum consistent with a small bowel obstruction. Left-sided nephrolithiasis. Mild esophageal distal wall thickening which may represent a mild esophagitis. Colonic diverticulosis. Abnormal laboratories: WBC 23.21, glucose 157, creatinine 1.36, calcium 10.6. From the ED patient received normal saline 1 L, Toradol 10 mg IV, Zofran 4 mg IV and metoclopramide 5 mg IV x2 Principal Diagnosis Small Bowel Obstruction Discharge Exam PHYSICAL EXAM General Appearance: WDWN in NAD who is A&O x 3 HEENT: Head is normocephalic/atraumatic; Hearing grossly intact; Mucous membranes moist Neck: Supple; Trachea midline; Neg JVD Heart: RRR with no M/G/R Lungs: CTA in all lung mejia bilaterally; Respirations unlabored; Neg accessory muscle use Abdomen: Soft, non-tender, non-distended; Positive BS x 4 quadrants Extremities: Neg cyanosis or edema Neurological: Speech clear; Gross motor/sensory function intact; Neg focal neurologic deficits Psychiatric: Appropriate mood/affect Skin: Normal Color; Warm/Dry Discharge Data Allergies Allergy/AdvReac Type Severity Reaction Status Date / Time No Known Drug Allergies Allergy Verified 12/02/20 10:11 Consultations 12/02/20 10:27 ED Decision to Admit Stat 12/02/20 11:34 Consult General Surgery Routine Ordered Studies Abdomen/Pelvis CT 12/02/20 08:[address] WITH IV CONTRAST CT DOSE: 1408.43 mGy.cm HISTORY: Generalized abdominal pain. Assess for small bowel obstruction. TECHNIQUE: Multiaxial CT images of the abdomen and pelvis were performed following the use of intravenous contrast. A dose lowering technique was utilized adhering to the principles of ALARA. COMPARISON STUDY: Abdomen and pelvis CT 06/15/2020. FINDINGS: The lung bases are clear. No pneumoperitoneum. No pneumatosis. There is a left total hip arthroplasty. No suspicious lytic or blastic osseous lesions. Mild circumferential thickening of the distal esophagus, unchanged. The liver, gallbladder, spleen, adrenal glands, and pancreas are unremarkable. There are few subcentimeter bilateral renal hypodense lesions. These are technically too small to characterize but likely represent cysts. There is a punctate stone within the left kidney. No ureteral stones. No hydronephrosis. The bladder is unremarkable. The prostate gland is mildly enlarged. The main portal vein is patent. No retroperitoneal lymphadenopathy. Dilated and fluid-filled loops of proximal small bowel to the level of the midabdomen where there is a focal transition point best seen on image 290. This is consistent with a small bowel obstruction. The stomach is also distended and fluid-filled. The loops of bowel distal to the transition point are decompressed. No pelvic free fluid. The conus also decompressed. No bowel wall thickening. Colonic diverticulosis. No evidence for acute diverticulitis. Normal appendix. IMPRESSION: 1. Distended and fluid-filled stomach and proximal small bowel with a focal transition point within the mid jejunum as described above. This consistent with a small bowel obstruction. 2. Left-sided nephrolithiasis. No hydronephrosis. 3. No change in the mild distal esophageal wall thickening. This may represent a mild esophagitis. 4. Normal appendix. 5. Colonic diverticulosis. ACT 112: Negative or not required by law. Electronically signed by: Abhijit Valerio M.D. 12/02/2020 9:32 AM Chest X-Ray 12/02/20 08:41 XR chest 1V portable HISTORY: Generalized abdominal pain. Possible small bowel obstruction. COMPARISON: Chest 06/22/2020. FINDINGS: No pneumothorax. No pleural effusions. The cardiac silhouette is borderline enlarged. No focal lung consolidations to suggest pneumonia. No evidence for pulmonary edema. IMPRESSION: No acute process. ACT 112: Negative or not required by law. Electronically signed by: Abhijit Valerio M.D. 12/02/2020 8:55 AM KUB X-Ray 12/03/20 08:08 KUB HISTORY: Follow up study in a patient with reported small bowel obstruction SBO COMPARISON: CT abdomen and pelvis 12/02/2020 FINDINGS: Air is noted within loops of both large and small bowel. No definite pathologically dilated loops of small bowel are identified. No renal calculi. No ureteral calculi. No pneumoperitoneum or pneumatosis. Degenerative changes of the spine, pelvis and right hip. Left hip total joint arthroplasty. No fracture. IMPRESSION: There is decreased small bowel distention from yesterday's study. ACT 112: Negative or not required by law. The above report was generated using voice recognition software. It may contain grammatical, syntax or spelling errors. Electronically signed by: Ortiz Hill M.D. 12/03/2020 10:24 AM Hospital Course (1) Small bowel obstruction: - First episode of SBO - does have a remote history of an inguinal hernia surgery but no other abdominal surgerys - SBO resolved spontaneously without surgical intervention; NGT placed on admission - Pt was able to move his bowels and tolerate a low fiber diet on discharge [facility] - no surgical intervention was warranted (2) Esophageal dysphagia: - Esophageal dysphagia/GERD/esophagitis- - Continue home Pantoprazole 20 mg daily (3) Esophagitis: - See above (4) GERD (gastroesophageal reflux disease): See above (5) Obstructive sleep apnea: - CPAP at bedtime (6) Atrial fibrillation: Chronic atrial fibrillation Atrial fibrillation/hypertension - Per review of records it appears Flecainide was at least temporarily held as an LBBB was found on EKG and thought possibly related to this - follows with [facility] for ongoing recommendations in regards to medication - Continue HCTZ, Losartan, Metoprolol, and Xarelto (7) Hypertension: - See above - Patient to follow-up routinely with PCP; Gen Surg provided contact information for any ongoing issues Total Time Total Time Spent Total Time Spent (In Minutes): Spent greater than 30 minutes preparing patient for discharge. This includes discussion with patient/family, assessment, intervention, medication reconciliation, and coordination of care. Discharge Plan Discharge Items Patient Disposition: Home - Self-Care Reason For Visit: SBO Discharge Diagnosis: Small Bowel Obstruction Activity: Resume your previous activity Non-emergency contact: Primary Care Provider Call non-emergency contact if: you have any medication questions, your symptoms worsen and you have a fever Follow-up/Referrals: Sejal Murray MD [Primary Care Provider] - 12/13/20 11:20 am Fei Calix DO [Surgeon] - (Call if you have any concerns, or if you have bloating, nausea or vomiting) Diet: Low Fiber Addtl Attending Provider Instructions: Small Bowel Obstruction: - You were admitted to the hospital for a small bowel obstruction. It is possible this could be caused by scar tissue from a previous surgery. - You can unfortunately get repeat bowel obstructions but you may not. Recommend to continue to stay active and can use a stool softener or laxative as needed to keep regulary bowel movements - Recommend to eat a low fiber diet for at least 2 weeks then can gradually increase fiber in the diet. Please review the education handout on low fiber diets and small bowel obstruction - Recommend to also eat small more frequent meals for the next couple weeks as well to prevent heavy meals making you feel sick to the stomach - If you have any questions or concerns you were seen by the [facility] General Surgery Team - their office number is [phone] Home Medications: - You may continue your home medications as previously prescribed. We did not make any adjustments to these Pending Studies at Discharge: No Stand-Alone Forms: My [facility], Smoking Cessation Medications and DC Order Prescriptions: Continued doxazosin 2 mg tablet 2 mg PO QPM Qty: 90 RF: 3 losartan 100 mg tablet 100 mg PO QAM Qty: 90 RF: 3 pantoprazole 20 mg tablet,delayed release (DR/EC) 20 mg PO QAM Qty: 90 RF: 3 atorvastatin 10 mg tablet 10 mg PO HS Qty: 90 RF: 3 metoprolol tartrate 25 mg tablet 12.5 mg PO BID Qty: 30 RF: 11 Xarelto 20 mg tablet 20 mg PO HS Qty: 30 RF: 11 hydrochlorothiazide 12.5 mg tablet 12.5 mg PO DAILY Qty: 90 RF: 3 (DME) CPAP Machine Misc See Rx Instructions .ROUTE .MEDSUPPLY Qty: 1 RF: 0 (DME) CPAP Machine Misc See Rx Instructions .ROUTE .MEDSUPPLY Qty: 1 RF: 0 multivitamin [Multiple Vitamins] Tablet 1 tab PO QAM RF: 0 ascorbic acid (vitamin C) 500 mg tablet 500 mg PO QAM RF: 0 cholecalciferol (vitamin D3) [Vitamin D3] 1,000 unit Capsule 1,000 unit PO QAM RF: 0 ondansetron HCl 4 mg tablet 4 mg PO Q6H PRN (Reason: Nausea) RF: 0 Discharge Orders: Discharge Order (Routine); Ordered 12/06/20 Ordered By: Elizabeth Collins/Other Patient Handouts: Small Bowel Obstruction, Low-Fiber Diet Admission Data Admit Date/Time: 12/02/20 11:12 Attending Provider: Raulito Carey Admit Provider: Ramon Leblanc Primary Care Provider: Sejal Murray V. Other Providers: Ramon Leblanc ; Fei Calix Other Interventions: Discharge Summary Assessment (RN) Last Done: 12/06/20 13:59 Supervising Physician Co-Signing Physician Notes Attending note: patient seen and examined with Elizabeth Jon PA-C. I agree with her discharge summary. I personally reviewed the labs and imaging findings. patient feeling much better, several BM, eating well, no nausea - SBO: clinically resolved, home on low fiber diet, stay well hydrated, stay active Coding Level of Care Code D/C DAY MANAGEMENT >30 MINS Diagnoses Small bowel obstruction K56.609 Esophageal dysphagia R13.10 Obstructive sleep apnea G47.33 Atrial fibrillation I48.91 Hypertension I10 GERD (gastroesophageal reflux disease) K21.9 Esophagitis K20.90
== END 2020-12-06 14:21 | disposition home or self-care (01) | DRG 389 ==
LOC: ED 07:50 → 2N 11:12 → SUATTDRO 11:12 → 2N 16:18